=== PATIENT | female | born 1965 | race Caucasian/White ===

== ENCOUNTER → 2019-03-13 12:30 | Outpatient (CLI) | payer OTHER, SELFPAY ==
--- NOTE | 2019-03-13 14:30 | ECHOD_ITS ---
Reason For Study: Murmur Procedure This was a 2D Doppler, Color Flow transthoracic echocardiogram. The exam was of adequate technical quality. Exam performed in department. Left Ventricle Normal LV size. Sigmoid septum. Left ventricular systolic function is normal. The estimated ejection fraction is 70 %. The global longitudinal strain = -23 % (normal). Transmitral doppler flow suggestive of impaired relaxation of left ventricle. No regional wall motion abnormalities noted. Right Ventricle Normal RV size. Normal systolic function. Atria Normal left atrium. Normal right atrium. No doppler evidence for ASD. Mitral Valve There is no mitral annular calcification. Normal mitral valve. Trivial mitral valve insufficiency. Tricuspid Valve Normal tricuspid valve. Trivial tricuspid valve insufficiency. Aortic Valve Trisinus/trileaflet aortic valve. Normal aortic valve. Pulmonic Valve The pulmonic valve is not well visualized. Trivial pulmonic valve insufficiency. Great Vessels Normal sized aortic root. Pericardium/Pleural No pericardial effusion. MMode/2D Measurements & Calculations LVIDd: 3.4 cm IVSd: 1.1 cm Ao root diam: 3.2 cm LVIDs: 2.2 cm LVPWd: 1.0 cm LA dimension: 3.7 cm RVDd: 3.3 cm FS: 36.9 % LAV(MOD-bp): 48.2 ml LVAd ap4: 26.7 cm2 SV(MOD-sp4): 50.6 ml LAV(MOD-bp) Indexed: 25.1 ml/m2 EDV(MOD-sp4): 78.6 ml LAV(MOD-sp2): 54.3 ml EDV(sp4-el): 83.9 ml LAV(MOD-sp4): 41.5 ml LVAs ap4: 13.5 cm2 ESV(MOD-sp4): 28.0 ml ESV(sp4-el): 27.8 ml EF(MOD-sp4): 64.4 % EF(sp4-el): 66.9 % SV(sp4-el): 56.1 ml LA A4 area: 16.4 cm2 RA A4 area: 13.1 cm2 Time Measurements MV dec time: 0.21 sec Doppler Measurements & Calculations MV E max mahendra: 103.0 cm/sec Lat Peak E' Mahendra: 9.6 cm/sec Med Peak E' Mahendra: 9.4 cm/sec MV A max mahendra: 127.3 cm/sec E/E' lat: 10.8 E/E' med: 11.0 MV E/A: 0.81 MV V2 max: 124.2 cm/sec MV P1/2t max mahendra: 124.2 cm/sec Ao V2 max: 169.5 cm/sec MV max P.2 mmHg MV P1/2t: 71.2 msec Ao max P.5 mmHg MV V2 mean: 78.3 cm/sec Ao V2 mean: 108.4 cm/sec MV mean P.9 mmHg MV dec slope: 511.1 cm/sec2 Ao mean P.5 mmHg MV V2 VTI: 28.5 cm MVA(P1/2t): 3.1 cm2 Ao V2 VTI: 31.6 cm LV V1 max: 119.5 cm/sec PA V2 max: 114.6 cm/sec LV V1 max P.7 mmHg LV V1 mean P.8 mmHg LV V1 mean: 77.2 cm/sec LV V1 VTI: 25.2 cm Interpretation Summary Left ventricular systolic function is normal. The estimated ejection fraction is 70 %. The global longitudinal strain = -23 % (normal). Sigmoid septum. Trivial mitral valve insufficiency. Trivial tricuspid valve insufficiency. Trivial pulmonic valve insufficiency. Transmitral doppler flow suggestive of impaired relaxation of left ventricle Ordering Physician: TIP SERRANO Performed By: Josafat Boateng RCS
== END ==
DX: R01.1 Cardiac murmur, unspecified (principal); F33.3 Major depressive disorder, recurrent, severe with psychotic symptoms
CPT/HCPCS: 36415; 80178; 93306